=== PATIENT | female | born 1960 | race Caucasian/White ===

== ENCOUNTER 2023-02-13 13:41 | Emergency (ER) | payer BC, MEDICARE ==
[~2023-02-13] VITALS: Ht 165.1 cm; Wt 64.0 kg
[2023-02-13 14:07] VITALS: BP 125/50
[2023-02-13 14:38] LABS: HEMATOCRIT. 30.9 % (36.0-48.0); HEMOGLOBIN. 10.2 g/dL (12.0-16.0); MEAN CORPUSCULAR HEMOGLOBIN 28.2 pg (28.0-32.0); MEAN CORPUSCULAR VOLUME 85.4 fL (81.0-99.0); MEAN PLATELET VOLUME 8.6 fl (7.4-10.4); PLATELET 182 x1000/uL (130-400); RED BLOOD CELL COUNT 3.62 mill/uL (4.2-5.4); RED CELL DISTRIBUTION WIDTH 13.9 % (11.6-14.6)
[2023-02-13 15:00] LABS: CHLORIDE 94 mEq/L (98-107); PLATELET ESTIMATE NORMAL
== END 2023-02-13 20:56 | disposition left against medical advice (07) ==
LOC: ER 14:23 → EDBEDREQ 17:43 → EDBEDREQTM 17:43 → ER 20:56 → CANBEDREQ 21:34
DX: R10.33 Periumbilical pain (principal); R11.2 Nausea with vomiting, unspecified; E87.70 Fluid overload, unspecified; E11.9 Type 2 diabetes mellitus without complications; I10 Essential (primary) hypertension
CPT/HCPCS: 36415; 71045; 74176; 80053; 83880; 84484; 85025; 93005; 99285